=== PATIENT | male | born 1985 | race Two or more races ===

== ENCOUNTER 2025-08-03 13:42 | Emergency (ER) | payer MEDICAID, SELFPAY ==
[2025-08-03 13:49] VITALS: BP 135/87; PULSE 135; RESP 19; TEMP 36.7; O2SAT 100
[2025-08-03 13:51] VITALS: BMI 24.3
--- NOTE | 2025-08-03 14:07 | PD.EDRME ---
Rapid Medical Screening Exam E Arrival date/time: 08/03/25 13:42 40-year-old male with no known medical history presents to the emergency room with a chief complaint of abdominal pain and an elevated platelet count. I have greeted and performed a focused initial assessment of this patient. A comprehensive ED assessment and evaluation of the patient, analysis of all test results, and completion of the medical decision making process will be conducted by additional ED providers. Chief Complaint: General Adult/Misc Complain Vital signs: Vital Signs Temperature 98.1 F 08/03/25 13:49 Pulse Rate 135 H 08/03/25 13:49 Respiratory Rate 19 08/03/25 13:49 Blood Pressure 135/87 H 08/03/25 13:49 Pulse Oximetry (%) 100 08/03/25 13:49 Oxygen Delivery Method Room Air 08/03/25 13:49 Vital signs reviewed by provider: Yes
--- NOTE | 2025-08-03 14:22 | XR_ITS ---
Examination: CT chest with intravenous contrast CT abdomen with intravenous contrast CT pelvis with intravenous contrast 2-D coronal and sagittal reconstructions Time of exam: August 03, 2025, 1708 hours INDICATIONS: Elevated platelet count on laboratory examination today, 2 weeks postop with abdominal and chest pain CTDI: vol (mGy) : 2.17 DLP: (mGycm): 511 Technique: Multiple axial images of the chest, abdomen and pelvis with intravenous contrast, 3.0 mm slice thickness. Images obtained post intravenous injection Isovue 370 60 cc. 2-D sagittal and coronal reconstructions. Low dose protocols were performed. One or more of the following dose reduction techniques were used; automated exposure control, adjustment of the mA and/or KV according to patient size, use of iterative reconstruction technique. Findings: No thoracic aortic aneurysm dilatation No pulmonary artery emboli No paratracheal tracheobronchial or bronchopulmonary adenopathy Large retrocardiac gastric hernia There are at least 9 subcentimeter pulmonary nodules throughout both lungs ranging in size from 2 to 3 mm No pneumonia or pulmonary edema No visualized liver or splenic lesion Contracted gallbladder No pancreatic or adrenal mass No renal or ureteral calculi, no hydronephrosis Fluid distended small bowel loops in the mid and left abdomen and pelvis Mild to moderate stool in the colon Normal appendix No diverticulitis Urinary bladder intact No prostatomegaly IMPRESSION: There are at least nine 1 to 2 mm bilateral pulmonary nodules throughout the lungs, recommend 6-month follow-up CT chest without contrast Multiple fluid distended small bowel loops in the mid and left abdomen as well as pelvis, differential would include ileus, enteritis such as Crohn's disease, early small bowel obstruction not excluded Consider three-way abdominal series follow-up as clinically warranted
--- NOTE | 2025-08-03 14:22 | XR_ITS ---
EXAMINATION: AP chest single view TECHNIQUE: AP portable upright chest single view Date and time: August 03, 2025, 1443 hours, comparison March 10, 2024 INDICATIONS: Chest pain today FINDINGS: Normal heart size No pneumonia or pulmonary edema Mild osteopenia IMPRESSION: No pneumonia or pulmonary edema
[2025-08-03 14:40] LABS: Lactate (Lactic Acid) 1.3 mMol/L (0.4-2.0)
[2025-08-03 14:47] LABS: Basophils # (Auto) 0.1 Thou/mm3 (0.0-0.2); Basophils % (Auto) 2 % (0-2.5); Eosinophils # (Auto) 0.1 Thou/mm3 (0.0-0.5); Eosinophils % (Auto) 1 % (0-10); Hematocrit 31.0 % (41.0-53.0); Hemoglobin 9.0 g/dL (13.5-16.0); Immature Granulocytes Auto 0.02 Thou/mm3 (0.00-0.00); Lymphocytes # (Auto) 2.0 Thou/mm3 (1.0-4.8); Lymphocytes % (Auto) 28 % (10-50); Mean Corpuscular HGB Conc 29.0 g/dl (31.0-37.0); Mean Corpuscular Hemoglobin 19.5 pg (25.0-35.0); Mean Corpuscular Volume 67 fL (80-100); Monocytes # (Auto) 0.7 Thou/mm3 (0.0-0.8); Monocytes % (Auto) 10 % (0-12); Neutrophils # (Auto) 4.3 Thou/mm3 (1.8-7.7); Neutrophils % (Auto) 60 % (37-80); Nucleated Red Blood Cell # 0.00 Thou/mm3 (0.00-0.00); Nucleated Red Blood Cell % 0 /100 WBC (0); Platelet Count 770 Thou/mm3 (140-440); RDW Standard Deviation 45.7 fL (35.1-43.9); Red Blood Count 4.61 Miln/mm3 (4.50-5.90); White Blood Count 7.1 Thou/mm3 (3.8-10.6)
--- NOTE | 2025-08-03 15:25 | PD.EDADULT ---
ED General RME/HPI General Chief complaint: General Adult/Misc Complain Stated complaint: PLATELETS HIGH; SENT BY DR. KRUEGER Time Seen by Provider: 08/03/25 14:09 Arrival date/time: 08/03/25 13:42 RME / HPI RME / HPI narrative: 08/03/25 13:42 Elvin is a 40 y/o male with PMHx of chronic anemia, Umbillical and hiatal hernia (s/p repair 3 weeks ago) who comes in for an evaluation of the abdominal pain and also elevated platelet count. Patient was recently discharged from the [facility] yesterday in which he was told that he had elevated platelet counts and it was measured at 990,000. He says that he has been on a clear liquid diet for about 3 weeks ago as he had his hernias repaired. He says that he got his hernia repairs about 3 weeks ago and was admitted to the hospital for about 5 days. He says that he was discharged afterwards, however about 5 days ago he went to the ER because to [facility] and he was admitted for workup of abdominal pain and that is where he noticed his elevation of his platelet count. He denies any family history of blood disorders. He says that he was given a medicine to lower his platelet count while at [facility]. He also said he has lost weight about 20 pounds within the past 3 weeks, however he attributes it to the clear liquid diet he was on. He is rating his abdominal pain 8 out of 10 at this time and is diffuse. He is requesting some pain medications at this time. He says he has dealt with chronic anemia for some time. He does say that he has smoked about half a pack of cigarettes for the past 2 years, does not vape and has not drank in 6 years. He works as a wills and heavy duty lifting. Related Data Previous Rx's ?Medication ?Instructions ?Recorded dicyclomine 20 mg tablet 20 mg PO BID PRN abdominal pain 03/10/24 #20 tabs pantoprazole 40 mg tablet,delayed 40 mg PO QDAY #20 tabs 03/10/24 release (Protonix) aspirin 81 mg tablet 81 mg PO QDAY #30 tabs 08/03/25 hydroxyurea 500 mg capsule 500 mg PO QID #60 caps 08/03/25 Allergies Allergy/AdvReac Type Severity Reaction Status Date / Time No Known Allergies Allergy Verified 08/03/25 13:45 Review of Systems Review of Systems Narrative Review of Systems: 12 point ROS reviewed and is otherwise negative unless stated directly in the HPI ED Exam Narrative Physical exam: General: AAOx3, NAD, HEENT: Moist mucous membranes, conjunctiva clear, EOMI, PERRLA, no clavicular lymphadenopathy, no lymphadenopathy in neck region. Cardiovascular: S1, S2, radial pulses +2 bilat, RRR Pulmonary: CTAB bilat no cough, no wheezing GI: Some tenderness palpitation, no guarding, rigidity, rebound tenderness or distension, laparoscopic scars healing, dry, no erythema, scabbing present. Extremities: No presence of trace or pitting edema in lower extremities bilaterally, dorsalis pedis pulses +2 bilaterally Neuro: AAOx3, no focal motor or sensory deficits in the UE or LE bilat Psych: Good judgement, thought and behavior Course Quality Measures none Orders Category Date Time Status CT Screening NOW Care 08/03/25 13:[address] Screening NOW Care 08/03/25 14:22 Completed Insert IV STAT Care 08/03/25 13:55 Completed Diet Regular Diet 08/03/[address] chest abdomen pelvis w Stat Exams 08/03/25 14:22 Completed XR chest 1V portable Stat Exams 08/03/25 14:22 Completed Blood Culture (Lab) Stat Lab 08/03/25 14:00 Received CBC Stat Lab 08/03/25 14:20 Completed CMP [Comprehensive Metabolic Panel] Stat Lab 08/03/25 14:20 Completed Ferritin Stat Lab 08/03/25 14:20 Completed Free T4 (Free Thyroxine) Stat Lab 08/03/25 14:20 Completed Iron Panel Stat Lab 08/03/25 14:20 Completed LDH (Lactate Dehydrogenase) Stat Lab 08/03/25 14:20 Completed Lactate (Lactic Acid) Stat Lab 08/03/25 14:20 Completed Lipase Stat Lab 08/03/25 14:20 Completed PT [Prothrombin Time with INR] Stat Lab 08/03/25 14:20 Completed PTT [Partial Thromboplastin Time] Stat Lab 08/03/25 14:20 Completed Path Review Blood Smear Stat Lab 08/03/25 14:20 Completed Procalcitonin Stat Lab 08/03/25 14:20 Completed Reticulocyte Count Stat Lab 08/03/25 14:20 Completed Thyroid Stimulating Hormone Stat Lab 08/03/25 14:20 Completed Morphine* Inj Med 08/03/25 15:58 Discontinued 4 mg IVP X1 ONE Vital Signs Vital signs: Vital Signs Temperature 98.1 F 08/03/25 13:49 Pulse Rate 135 H 08/03/25 13:49 Respiratory Rate 19 08/03/25 13:49 Blood Pressure 135/87 H 08/03/25 13:49 Pulse Oximetry (%) 100 08/03/25 13:49 Oxygen Delivery Method Room Air 08/03/25 13:49 Discharge Plan Plan Patient Disposition: HOME (Self Care) Discharge Disposition comment: Stable Prescriptions/Referrals Prescriptions/Med Rec: New hydroxyurea 500 mg capsule 500 mg PO QID Qty: 60 0RF aspirin 81 mg tablet 81 mg PO QDAY Qty: 30 0RF No Action pantoprazole [Protonix] 40 mg tablet,delayed release (DR/EC) 40 mg PO QDAY Qty: 20 0RF dicyclomine 20 mg tablet 20 mg PO BID PRN (Reason: abdominal pain) Qty: 20 0RF Referrals: No Primary/Family,Physician [Primary Care Provider] - In 1 week Problem List Clinical Impression: Thrombocytopenia, Abdominal pain Patient/Caregiver Discharge Instructions Discharge Activity: activity as tolerated Education Materials: Abdominal Pain, Thrombocytopenia Additional Instructions: Thank you for the opportunity for serving you today. You are stable for discharged . You are advise Dr Krueger next week Return to ED for worsening of symptoms Increase oral fluids Take medication as prescribed Print Language: [place] Stand Alone Forms: Anneliese Award Info., Patient Portal Info Letter PA/[employer] PROCESSING TECHNICIAN Supervising Physician PA/BI[employer] PROCESSING TECHNICIAN Supervising Physician: MD Vani MDM Narrative MDM hospital course (for use when minimal MDM required): 1556: Ordered additional anemia workup including ferritin, LDH reticulocyte count smear. Will follow-up with CT abdomen pelvis, reviewed CBC which shows microcytic anemia. Thrombocytosis at 770, pending CBC. Ordered for TSH and T4. Will give IV morphine. 1739: Reviewed labs, reticulocyte count absolute within normal limits which is typically not seen in an anemic patient. patient appears to have microcytic anemia , iron level is 23, TIBC is 466 which is elevated, however ferritin is 107 and ferritin is usually low and in iron deficiency anemia. Lactate dehydrogenase is elevated at 346 as well. T. bili is borderline almost elevated at 1.1. Pending CT chest abdomen pelvis read 1800: Case was handed off to ED Provider, Johanna Rosas. Medication Administration(s) Medication Administration History Discontinued Medications Morphine Sulfate (Morphine Sulf Inj 4 Mg/Ml Vial) 4 mg IVP X1 ONE Stop: 08/03/25 15:59 Last Admin: 08/03/25 16:19 Dose: 4 mg Documented By: JOE
[2025-08-03 15:40] VITALS: BP 117/82; PULSE 94; RESP 16; TEMP 36.6; O2SAT 99
[2025-08-03 15:52] LABS: Immature Reticulocyte Fraction 25.3 % (2.3-13.4); Reticulocyte % (Auto) 1.4 % (0.5-1.5); Reticulocyte Absolute Auto 65.3 Biln/L (25.0-75.0); Reticulocyte Hgb Content 20.9 pg (28.0-35.0)
[2025-08-03 16:02] LABS: Ferritin 107 ng/mL (10.5-307.3); Iron 23 mcg/dL (65-175); Percent Iron Saturation 4 % (20-55); Total Iron Binding Capacity 466 mcg/dL (250-425); Unsaturated Iron Binding 443 (225-295)
[2025-08-03 16:04] LABS: Path Review Blood Smear Sent to Pathologist
[2025-08-03 16:05] LABS: INR 1.1 (0.9-1.3); Partial Thromboplastin Time 30.1 Seconds (22.0-36.0); Prothrombin Time 11.4 Seconds (9.0-12.2)
[2025-08-03] MEDS: MORPHINE SULF INJ 4 MG/ML VIAL IVP (16:19)
[2025-08-03 16:23] LABS: Alanine Aminotransferase 18 U/L (10-49); Albumin, Serum 4.8 gm/dL (3.5-5.0); Albumin/Globulin Ratio 1.7 (1.2-2.2); Alkaline Phosphatase 92 U/L (46-116); Anion Gap 13 (7-16); Aspartate Amino Transferase 27 U/L (0-34); BUN/Creatinine Ratio 12 Ratio (12-20); Bilirubin,Total 1.1 mg/dL (0.3-1.2); Blood Urea Nitrogen 14 mg/dL (9-23); Calcium 9.8 mg/dL (8.3-10.6); Calcium (Corrected) 9.8 mg/dL (8.5-10.1); Carbon Dioxide 25.5 mMol/L (20.0-31.0); Chloride 103 mMol/L (98-107); Creatinine (Component) 1.2 mg/dL (0.6-1.3); Estimated Creatinine Clearance 75.7 mL/min (>60); Free T4 (Free Thyroxine) 1.63 ng/dL (0.89-1.76); Globulin 2.8 gm/dL (2.3-3.5); Glucose 96 mg/dL (74-106); LDH (Lactate Dehydrogenase) 346 U/L (120-246); Lipase 28 U/L (12-53); Osmolality,Calculated 281 (275-295); Potassium 4.5 mMol/L (3.4-5.1); Procalcitonin 0.04 ng/ml (0.0-0.49); Sodium 141 mMol/L (136-145); Thyroid Stimulating Hormone 3.19 uIU/mL (0.55-4.78); Total Protein 7.6 gm/dL (5.7-8.2); eGFR > 60 See Note
[2025-08-03 18:22] VITALS: BP 122/87; PULSE 110; RESP 18; TEMP 36.8; O2SAT 100
[2025-08-03 18:51] VITALS: BP 125/83; PULSE 102; RESP 18; O2SAT 100
--- NOTE | 2025-08-03 19:35 | PC.NURSE ---
DR KRUEGER AT BEDSIDE SPEAKING WITH PATIENT
--- NOTE | 2025-08-03 19:48 | PD.EDADDENDU ---
Emergency Room Addendum Addendum Narrative: Patient was endorsed to me by Dr. Braun pending CT scan results. I reviewed patient's past medical history, physical examination, laboratory workup, including CT scan results. Results of the CT scan showed There are at least nine 1 to 2 mm bilateral pulmonary nodules throughout the lungs, recommend 6-month follow-up CT chest without contrast Multiple fluid distended small bowel loops in the mid and left abdomen as well as pelvis, differential would include ileus, enteritis such as Crohn's disease, early small bowel obstruction not excluded Consider three-way abdominal series follow-up as clinically warranted Plan of care discussed with the patient. I also discussed this case with Dr. Herndon who happened to be in the emergency room, and examined the patient in the room. Patient stable for discharge home he is not having any abdominal pain he is not vomiting. Patient is stable for discharge home, will prescribe him hydroxyurea and aspirin 81 mg daily. He will follow-up with Dr. Herndon next week.
== END 2025-08-03 19:57 | disposition home or self-care (01) ==
PROVIDERS: Nurse Practitioner Family
DX: D69.6 Thrombocytopenia, unspecified (principal); Z79.82 Long term (current) use of aspirin
CPT/HCPCS: 36415; 71045; 71260; 74177; 80053; 81001; 82728; 83540; 83550; 83605; 83615; 83690; 84145; 84439; 84443; 85025; 85046; 85610; 85730; 87040; 87086; 99284; A4649; J2270; Q9967